=== PATIENT | male | born 1990 | race Caucasian/White ===

== ENCOUNTER 2022-04-07 14:10 | Observation (INO) ==
--- NOTE | 2022-04-07 14:51 | Emergency Department Note ---
Chest Pain HPI General Chief Complaint: Chest Pain Stated Complaint: stabbing chest pain, nausea/vomiting, Time Seen by Provider: 04/07/22 14:14 Source: patient Mode of arrival: ambulatory Limitations: no limitations History of Present Illness HPI Narrative: Narrative: 32-year-old male presents emergency department with 2 to 3 days of chest pain. Patient states its more on the epigastrium and right upper quadrant of his abdomen. Patient states he was recently seen at [facility] yesterday had a complete cardiac work-up that came back negative but he said he still having pain so he wanted to come get evaluated. States he tried a GI cocktail which helped his pain but then seem to come back. He states that he is not short of breath. Denying any other symptoms otherwise said the pains about a 6 out of 10 sharp stabbing pain does not admit to any methamphetamine or any other drug use. Related Data Home Medications Medication Instructions Recorded Confirmed No Known Home Meds 04/07/22 04/07/22 Allergies Allergy/AdvReac Type Severity Reaction Status Date / Time No Known Drug Allergies Allergy Verified 04/07/22 14:13 Review of Systems ROS ROS Narrative: Narrative: All systems ED: reviewed and negative except as stated. PFSH Narrative Patient History Narrative: Narrative: Medical/Surgical/Family History All Active Problems (Updated 04/07/22 @ 16:42 by Jesse Santana DO) Injury of meniscus of knee (Acute) Acute cholecystitis (Acute) Social History Smoking Status: Current every day smoker Exam Narrative Narrative: Narrative: Vital signs noted General: Awake. Alert. No distress. Skin: Warm. Dry. No rash. HEENT: NCAT. PERRL. EOMI. No conjunctivitis. No nystagmus. No pharyngitis. Membranes moist. Neck: No PTP. Good ROM. No meningeal signs. No stridor. No thyromegaly. No JVD. Cardiovascular: RRR. No murmur. No rubs. No gallops. Respiratory: No respiratory distress. Breath sounds equal. Lungs clear. Gastrointestinal: Abdomen soft. Tenderness when palpating the right upper quadrant positive Oates sign. No distention. Normal bowel sounds. No palpable organomegaly or masses. Back: No deformity. No CVAT. Musculoskeletal: No tenderness. No swelling. No erythema. No edema. Good peripheral pulses x 4 Lymphatic: No palpable adenopathy. Neurological: No focal neurological deficits observed. General Limitations: no limitations Course Vital Signs Vital signs: Vital Signs Temperature 98.2 F 04/07/22 14:11 Pulse Rate 105 H 04/07/22 14:11 Respiratory Rate 20 04/07/22 14:11 Blood Pressure 136/81 04/07/22 14:11 Pulse Oximetry (%) 100 04/07/22 14:11 Temperature 98.2 F 04/07/22 14:11 Pulse Rate 66 04/07/22 16:01 Respiratory Rate 14 04/07/22 16:01 Blood Pressure 130/84 04/07/22 16:16 Pulse Oximetry (%) 99 04/07/22 16:01 [facility] MDM Narrative Medical decision making narrative: Narrative: Patient looks well on exam. He does have some right upper quadrant pain on palpation. Were not possible gallbladder disease we will go ahead and get an ultrasound of the gallbladder we will get basic labs including a troponin EKG was done and was negative. We will get other basic labs. I did review the notes and the work-up that was done at [facility] on 04/06/2022. They did do a complete cardiac work-up including delta troponins and all came back negative chest x-ray also was negative interestingly he did come back for amphetamines this could been secondary to amphetamine abuse. He also had a chest x-ray that was negative as well. All of his other labs came back no acute findings. At that time he was discharged home. Troponin was negative CMP was otherwise normal with normal electrolytes normal liver enzymes. Lipase mildly elevated white count was 18. Ultrasound of the gallbladder did show some pericholecystic fluid inflamed gallbladder wall with some gallstones with a common bile duct measuring 4 mm but no obstructing stone. Patient given Dilaudid for pain, Zofran for nausea IV fluids for rehydration as well as Zosyn for antibiotics. Spoke with Dr. Toledo the on-call surgeon who will admit the patient to himself and plan for cholecystectomy tomorrow. EKG interpretation: EKG done at 1418 interpreted by myself shows sinus rhythm at a rate 86, QRS 104, QTc 450. There is no acute ST changes no acute T wave changes no other signs of ischemia no signs of hypertrophy, heart strain, heart block. No WPW/Brugada/HOCM. Impression is normal sinus EKG with no ischemia Lab Data Result diagrams: 04/07/22 14:30 04/07/22 14:30 Labs: Lab Results 04/07/22 04/07/22 04/07/22 Range/Units 14:30 14:30 14:42 WBC 18.0 H (4.5-11.0) K/mcL RBC 5.64 (4.63-6.08) M/mcL Hgb 16.6 (13.7-17.5) g/dL Hct 48.8 (40.1-51.0) % MCV 86.5 (80.0-100.0) fL MCH 29.4 (26.0-34.0) pg MCHC 34.0 (31.0-36.0) g/dL RDW 12.9 (11.5-14.5) % Plt Count 247 (140-440) K/mcL MPV 10.5 H (7.4-10.4) fL Neut % (Auto) 80.9 H (38.0-78.0) % Lymph % (Auto) 8.2 L (15.5-49.0) % [place] % (Auto) 9.4 (1.0-12.0) % Eos % (Auto) 1.2 (0.0-7.0) % Baso % (Auto) 0.3 (0.0-2.0) % Lymph # (Auto) 1.48 L (1.50-4.80) K/mcL [place] # (Auto) 1.70 H (0.10-0.90) K/mcL Eos # (Auto) 0.21 (0.00-0.70) K/mcL Baso # (Auto) 0.06 (0.00-0.30) K/mcL Absolute Neutrophils 14.57 H (1.80-8.00) K/mcL Sodium 134 (133-145) mmol/L Potassium 3.5 (3.3-5.1) mmol/L Chloride 98 (96-108) mmol/L Carbon Dioxide 26 (22-30) mmol/L Anion Gap 10.0 (8.0-16.0) BUN 5 L (6-20) mg/dL Creatinine 0.9 (0.7-1.2) mg/dL GFR Calculation 112 Glucose 106 H (70-105) mg/dL Calcium 8.9 (8.6-10.4) mg/dL Total Bilirubin 0.3 (0.1-1.0) mg/dL AST 23 (<40) U/L ALT 35 (<40) U/L Alkaline Phosphatase 112 (39-117) U/L Total Protein 6.9 (5.9-8.4) gm/dL Albumin 4.4 (3.2-5.2) gm/dL Globulin 2.5 (2.2-3.7) gm/dL Albumin/Globulin Ratio 1.8 (1.0-2.3) Lipase 390 H (7-60) U/L POC Troponin I 0 L (0.02-0.08) Discharge Plan Patient/Caregiver Discharge Instructions Pt seen by [employer]PER/PA only: No Clinical Impression: Acute cholecystitis Patient Disposition: Xfer As Outpt/Obs ([facility]) Condition: Fair Follow up with: No,PCP [Primary Care Provider] - Prescriptions: No Action No Known Home Meds 0RF
[2022-04-07] MEDS ORDERED: KETOROLAC 60 MG/2 ML VIAL IM ONE (15:36)
[2022-04-07 15:39] LABS: Basophils # (Auto) 0.06 K/mcL (0.00-0.30); Basophils % (Auto) 0.3 % (0.0-2.0); Eosinophils # (Auto) 0.21 K/mcL (0.00-0.70); Eosinophils % (Auto) 1.2 % (0.0-7.0); Hematocrit 48.8 % (40.1-51.0); Hemoglobin 16.6 g/dL (13.7-17.5); Lymphocytes # (Auto) 1.48 K/mcL (1.50-4.80); Lymphocytes % (Auto) 8.2 % (15.5-49.0); Mean Cell Volume 86.5 fL (80.0-100.0); Mean Platelet Volume 10.5 fL (7.4-10.4); Monocytes % (Auto) 9.4 % (1.0-12.0); Neutrophils % (Auto) 80.9 % (38.0-78.0); Platelet Count 247 K/mcL (140-440); RBC 5.64 M/mcL (4.63-6.08); Red Cell Distribution Width 12.9 % (11.5-14.5)
[2022-04-07 16:02] LABS: ALT/SGPT 35 U/L (<40); AST/SGOT 23 U/L (<40); Albumin 4.4 gm/dL (3.2-5.2); Albumin/Globulin Ratio 1.8 (1.0-2.3); Alkaline Phosphatase 112 U/L (39-117); Bilirubin,Total 0.3 mg/dL (0.1-1.0); Blood Urea Nitrogen 5 mg/dL (6-20); Calcium 8.9 mg/dL (8.6-10.4); Carbon Dioxide 26 mmol/L (22-30); Chloride 98 mmol/L (96-108); Globulin 2.5 gm/dL (2.2-3.7); Glomerular Filtration Rate 112; Glucose 106 mg/dL (70-105)
--- NOTE | 2022-04-07 16:18 | EKG ---
[facility] Test Date: 2022-04-07 Pat Name: Khurram Sanchez Department: ED Room: Gender: Male [employer] Driver: MARU : 1990 Requested By: Jesse Santana Order Number: [id number] Reading MD: Marino Hoskins Measurements Intervals [place] Rate: 86 P: 72 MS: 136 QRS: 33 QRSD: 104 T: 52 QT: 376 QTc: 450 Interpretive Statements Sinus rhythm Electronically Signed On 04-07-2022 16:18:31 PDT by Marino Hoskins /[facility]/M0/[id number].pdf
[2022-04-07] MEDS ORDERED: ONDANSETRON 4 MG/2 ML VIAL IV ONE ×2 (16:33→16:35)
[2022-04-07] MEDS ORDERED: PIPERACILLIN SODIUM/TAZOBACTAM 3.375 GM in DEXTROSE 5% IN WATER 50 ML IV ONE (16:33)
[2022-04-07] MEDS ORDERED: HYDROmorphone 0.5 MG/0.5 ML SYRINGE IV PRN ×2 (16:33→16:35)
--- NOTE | 2022-04-07 16:49 | Ultrasound Report ---
History: Right upper quadrant pain for the past four days FINDINGS: The liver is normal in size and homogeneous. Doppler shows normal blood flow in the hepatic and portal veins. The gallbladder contains multiple calcified stones of varying size. They measure up to 1.4 cm. Gallbladder wall is mildly thickened and edematous. It measures 4.4 mm. The patient was moderately tender while scanning over the gallbladder. There is a trace amount of free fluid adjacent to the gallbladder. The bile ducts are upper limits of normal caliber. Common duct measures 4.2 mm. No obvious stone is seen within the duct. The pancreas was largely obscured by overlying bowel gas. IMPRESSION: cholelithiasis and cholecystitis Dr. Santana was called with the report Interpreted and Authenticated by: Honorio Varela 04/07/22
[2022-04-07] MEDS ORDERED: PROMETHAZINE 25 MG/ML VIAL IV PRN (17:43)
[2022-04-07] MEDS: 0.9 % SODIUM CHLORIDE 1,000 ML IV SCH (17:56)
[2022-04-07] MEDS: ACETAMINOPHEN 1,000 MG/100 ML BAG IV SCH (18:01)
--- NOTE | 2022-04-07 19:11 | General Surg History&Physical ---
HPI History of Present Illness Patient information: Note initiated : 04/07/22 at 7:02 pm Service Date, if different from initiated Date: [] Patient: Khurram Sanchez a 32 y/o M admitted on 04/07/22 for stabbing chest pain, nausea/vomiting,. Chief Complaint: [] Chief complaint: Right upper quadrant pain with nausea vomiting History of present illness: Mr. Sanchez is a 32 year old M with a 4-day history of epigastric and right upper quadrant pain. Patient seen in the emergency room at [facility] x2. He had cardiac work-up and was given analgesics and a GI cocktail. This relieved his symptoms some but they recurred earlier today. He was again seen in the emergency room and left AMA because of disagreement with the staff. He presented an hour emergency room with complaint of abdominal pain nausea and vomiting. He had an exquisitely tender abdomen. White count was 18,000 and upper abdominal ultrasound shows thickened gallbladder with multiple stones and pericholecystic fluid compatible with acute cholecystitis with cholelithiasis. He is admitted for IV antibiotics and will have cholecystectomy in the a.m. 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 Surgical History (Updated 04/07/22 @ 19:08 by Ranjan Toledo MD) History of appendectomy MEDS/ALLERGIES Home Medications and Allergies Home Medications Medication Instructions Recorded Confirmed Type No Known Home Meds 04/07/22 04/07/22 History Allergies Allergy/AdvReac Type Severity Reaction Status Date / Time No Known Drug Allergies Allergy Verified 04/07/22 14:13 Physical Examination Vital Signs Vital signs: Temp Pulse Resp BP Pulse Ox 97.9 F 71 20 111/66 100 04/07/22 18:01 04/07/22 16:31 04/07/22 18:01 04/07/22 18:01 04/07/22 18:01 General physical appearance General physical exam: well developed, well nourished and moderate pain Eyes Eye exam: PERRL and normal ocular movement ENT ENT exam: no hearing loss and poor prison Head Head exam IM: Present atraumatic, normal inspection and normocephalic Neck Neck exam: no masses, no bruits, trachea midline, no lymphadenopathy and no venous distension Cardiovascular Cardiovascular exam IM: Present normal rate and rhythm, RRR, +S1 and +S2; Absent JVD or tachycardia Respiratory Respiratory exam: normal expansion, normal respiratory effort and clear to auscultation Abdomen Abdomen: Present soft and tender (Right upper quadrant and epigastric tenderness with guarding) Integumentary Integumentary: Present no rash, no growths and no abnormal pigmentation Neurologic Neurologic: Present normal coordination and normal sensation Musculoskeletal Musculoskeletal: Present normal gait, normal posture and other (Healed amputation right hand third fourth and fifth digits) Psychiatric Psychiatric: Present oriented to time, oriented to person, oriented to place, speech is normal, memory intact and other Results Labs Result diagrams: 04/07/22 14:30 04/07/22 14:30 Labs: Abnormal lab results 04/07/22 04/07/22 04/07/22 Range/Units 14:30 14:30 14:42 WBC 18.0 H (4.5-11.0) K/mcL MPV 10.5 H (7.4-10.4) fL Neut % (Auto) 80.9 H (38.0-78.0) % Lymph % (Auto) 8.2 L (15.5-49.0) % Lymph # (Auto) 1.48 L (1.50-4.80) K/mcL [place] # (Auto) 1.70 H (0.10-0.90) K/mcL Absolute Neutrophils 14.57 H (1.80-8.00) K/mcL BUN 5 L (6-20) mg/dL Glucose 106 H (70-105) mg/dL Lipase 390 H (7-60) U/L POC Troponin I 0 L (0.02-0.08) Diabetes panel 04/07/22 Range/Units 14:30 Sodium 134 (133-145) mmol/L Potassium 3.5 (3.3-5.1) mmol/L Chloride 98 (96-108) mmol/L Carbon Dioxide 26 (22-30) mmol/L BUN 5 L (6-20) mg/dL Creatinine 0.9 (0.7-1.2) mg/dL Glucose 106 H (70-105) mg/dL Calcium 8.9 (8.6-10.4) mg/dL AST 23 (<40) U/L ALT 35 (<40) U/L Alkaline Phosphatase 112 (39-117) U/L Total Protein 6.9 (5.9-8.4) gm/dL Albumin 4.4 (3.2-5.2) gm/dL Calcium panel 04/07/22 Range/Units 14:30 Calcium 8.9 (8.6-10.4) mg/dL Albumin 4.4 (3.2-5.2) gm/dL Pituitary panel 04/07/22 Range/Units 14:30 Sodium 134 (133-145) mmol/L Potassium 3.5 (3.3-5.1) mmol/L Chloride 98 (96-108) mmol/L Carbon Dioxide 26 (22-30) mmol/L BUN 5 L (6-20) mg/dL Creatinine 0.9 (0.7-1.2) mg/dL Glucose 106 H (70-105) mg/dL Calcium 8.9 (8.6-10.4) mg/dL Adrenal panel 04/07/22 Range/Units 14:30 Sodium 134 (133-145) mmol/L Potassium 3.5 (3.3-5.1) mmol/L Chloride 98 (96-108) mmol/L Carbon Dioxide 26 (22-30) mmol/L BUN 5 L (6-20) mg/dL Creatinine 0.9 (0.7-1.2) mg/dL Glucose 106 H (70-105) mg/dL Calcium 8.9 (8.6-10.4) mg/dL Total Bilirubin 0.3 (0.1-1.0) mg/dL AST 23 (<40) U/L ALT 35 (<40) U/L Alkaline Phosphatase 112 (39-117) U/L Total Protein 6.9 (5.9-8.4) gm/dL Albumin 4.4 (3.2-5.2) gm/dL All other labs normal. A/P Assessment and plan (1) Cholecystitis, acute with cholelithiasis: Status: Acute Plan Patient is admitted with clear liquids N.p.o. after midnight Zosyn 3.375 IV every 6 hours Promethazine 12.5 mg IV every 4 hours as needed nausea Hydromorphone 1 mg IV every 2 hours as needed Counseled patient for laparoscopic cholecystectomy to be performed in the morning Time Spent With Patient Time: Total time spent is greater than 50% in coordination of care (as documented) at patient's floor/unit and/or counseling patient:
[2022-04-07] MEDS ORDERED: ALPRAZolam 0.5 MG TABLET PO PRN (19:15)
[2022-04-07] MEDS: HYDROmorphone 1 MG/ML SYRINGE IV PRN (19:25)
[2022-04-07] MEDS: NICOTINE 21 MG PATCH TOPICAL SCH (21:41)
[2022-04-07] MEDS: PIPERACILLIN SODIUM/TAZOBACTAM 3.375 GM in DEXTROSE 5% IN WATER 50 ML IV SCH (23:35)
[2022-04-08] MEDS: ACETAMINOPHEN 1,000 MG/100 ML BAG IV SCH ×3 (00:19→12:38)
[2022-04-08] MEDS: 0.9 % SODIUM CHLORIDE 1,000 ML IV SCH ×3 (02:58→22:10)
[2022-04-08] MEDS: HYDROmorphone 1 MG/ML SYRINGE IV PRN ×7 (02:58→23:37)
[2022-04-08 03:41] LABS: Amphetamine Screen,Urine Suspect positive; Barbiturate Screen,Urine None detected; Benzodiazepines Screen,Urine None detected; Cannabinoid Screen,Urine None detected; Cocaine Screen,Urine None detected; Opiate Screen,Urine Suspect Positive; Oxycodone, Urine Screen None detected; Phencyclidine Screen,Urine None detected
[2022-04-08] MEDS: PIPERACILLIN SODIUM/TAZOBACTAM 3.375 GM in DEXTROSE 5% IN WATER 50 ML IV SCH ×4 (05:12→23:38)
[2022-04-08 06:27] LABS: Basophils # (Auto) 0.05 K/mcL (0.00-0.30); Basophils % (Auto) 0.4 % (0.0-2.0); Eosinophils # (Auto) 0.27 K/mcL (0.00-0.70); Eosinophils % (Auto) 2.3 % (0.0-7.0); Hemoglobin 15.5 g/dL (13.7-17.5); Lymphocytes # (Auto) 1.38 K/mcL (1.50-4.80); Lymphocytes % (Auto) 11.5 % (15.5-49.0); Mean Cell Volume 86.6 fL (80.0-100.0); Mean Corpuscular HGB Conc 33.7 g/dL (31.0-36.0); Mean Platelet Volume 10.6 fL (7.4-10.4); Monocytes # (Auto) 1.44 K/mcL (0.10-0.90); Neutrophils % (Auto) 73.8 % (38.0-78.0); Platelet Count 215 K/mcL (140-440); RBC 5.31 M/mcL (4.63-6.08); Red Cell Distribution Width 13.1 % (11.5-14.5)
[2022-04-08 06:51] LABS: ALT/SGPT 202 U/L (<40); AST/SGOT 175 U/L (<40); Albumin 3.3 gm/dL (3.2-5.2); Albumin/Globulin Ratio 1.5 (1.0-2.3); Alkaline Phosphatase 122 U/L (39-117); Bilirubin,Direct 0.5 mg/dL (<0.3); Blood Urea Nitrogen 10 mg/dL (6-20); Calcium 8.6 mg/dL (8.6-10.4); Carbon Dioxide 26 mmol/L (22-30); Chloride 104 mmol/L (96-108); Globulin 2.2 gm/dL (2.2-3.7); Glomerular Filtration Rate 112; Glucose 98 mg/dL (70-105); Lactate Dehydrogenase 237 U/L (135-225); Phosphorous 3.2 mg/dL (2.5-4.5); Triglycerides 49 mg/dL (<150); Uric Acid 3.5 mg/dL (2.5-8.0)
[2022-04-08] MEDS ORDERED: ROCURONIUM 10 MG/ML ML IV ONE (09:00)
[2022-04-08] MEDS ORDERED: SUCCINYLCHOLINE 20 MG/ML ML IV ONE (09:00)
[2022-04-08] MEDS ORDERED: SCOPOLAMINE 1 PATCH PATCH TOPICAL PRN (09:00)
[2022-04-08] MEDS ORDERED: KETAMINE 50 MG/ML Syringe (ANEST) IV ONE (09:00)
[2022-04-08] MEDS ORDERED: fentaNYL 250 MCG/5 ML VIAL IV ONE (09:00)
[2022-04-08] MEDS ORDERED: ONDANSETRON 4 MG/2 ML VIAL ONE (09:00)
[2022-04-08] MEDS ORDERED: GLYCOPYRROLATE 0.2 MG/ML VIAL IV ONE (09:00)
[2022-04-08] MEDS ORDERED: IPRATROPIUM/ALBUTEROL 3 ML AMPUL.NEB NEB PRN ×2 (09:00→10:28)
[2022-04-08] MEDS ORDERED: PHENYLephrine 1 MG/10 ML SYRINGE (ANEST) ONE (09:00)
[2022-04-08] MEDS ORDERED: SUGAMMADEX SODIUM 200 MG/2 ML VIAL IV ONE (09:00)
[2022-04-08] MEDS ORDERED: LIDOCAINE HCL/PF 100 MG/5 ML SYRINGE IV ONE (09:00)
[2022-04-08] MEDS ORDERED: PROPOFOL 200 MG/20 ML VIAL IV ONE (09:00)
[2022-04-08] MEDS ORDERED: MAGNESIUM SULFATE 2 GM/50 ML BAG IV ONE (09:00)
[2022-04-08] MEDS ORDERED: DEXAMETHASONE 10 MG/ML VIAL ONE (09:00)
[2022-04-08] MEDS ORDERED: MIDAZOLAM 2 MG/2 ML VIAL ONE (09:00)
--- NOTE | 2022-04-08 10:06 | Brief Operative Note ---
Brief Operative Note Date of procedure: 04/08/22 Pre-op diagnosis: acute cholecystitis with cholelithiasis Post-op diagnosis: other (acute cholecystitis with cholelithiasis) Procedure: laparoscopic cholecystectomy Grafts/Implants: No Anesthesia: GETA Findings: severe inflammation of gallbladder with stones obstructing cystic duct Complications: none Surgeon: Ranjan Toledo Estimated blood loss (cc): 25 Specimens Removed/Pathology: other (gallbladder) Condition: stable Disposition: PACU
[2022-04-08] MEDS ORDERED: NALOXONE HCL 0.4 MG/ML VIAL IV PRN (10:28)
[2022-04-08] MEDS ORDERED: LABETALOL 5 MG/ML ML IV PRN (10:28)
[2022-04-08] MEDS ORDERED: ONDANSETRON 4 MG/2 ML VIAL IV PRN (10:28)
[2022-04-08] MEDS ORDERED: LACTATED RINGERS 250 ML IV PRN (10:28)
[2022-04-08] MEDS ORDERED: HYDROmorphone 0.5 MG/0.5 ML SYRINGE IV PRN (10:28)
[2022-04-08] MEDS ORDERED: FLUMAZENIL 0.1 MG/ML ML IV PRN (10:28)
[2022-04-08] MEDS ORDERED: METOPROLOL TARTRATE 5 MG/5 ML VIAL IV PRN (10:28)
[2022-04-08] MEDS ORDERED: METHOCARBAMOL 1,000 MG/10 ML VIAL IV PRN (10:28)
[2022-04-08] MEDS ORDERED: MEPERIDINE 25 MG/ML VIAL IV PRN (10:28)
[2022-04-08] MEDS ORDERED: fentaNYL 100 MCG/2 ML VIAL IV PRN (10:28)
[2022-04-08] MEDS ORDERED: LACTATED RINGERS 1,000 ML IV SCH (10:30)
[2022-04-08] MEDS: NICOTINE 21 MG PATCH TOPICAL SCH (12:04)
[2022-04-08] MEDS: 0.9 % SODIUM CHLORIDE 10 ML SYRINGE IV SCH ×2 (14:20→22:11)
[2022-04-09 05:57] LABS: Basophils # (Auto) 0.03 K/mcL (0.00-0.30); Basophils % (Auto) 0.2 % (0.0-2.0); Eosinophils # (Auto) 0.01 K/mcL (0.00-0.70); Eosinophils % (Auto) 0.1 % (0.0-7.0); Hematocrit 45.4 % (40.1-51.0); Hemoglobin 14.9 g/dL (13.7-17.5); Lymphocytes # (Auto) 0.76 K/mcL (1.50-4.80); Lymphocytes % (Auto) 3.9 % (15.5-49.0); Mean Cell Volume 87.1 fL (80.0-100.0); Mean Corpuscular HGB Conc 32.8 g/dL (31.0-36.0); Mean Platelet Volume 10.2 fL (7.4-10.4); Monocytes # (Auto) 1.18 K/mcL (0.10-0.90); Neutrophils % (Auto) 89.8 % (38.0-78.0); Platelet Count 249 K/mcL (140-440); RBC 5.21 M/mcL (4.63-6.08); Red Cell Distribution Width 12.8 % (11.5-14.5); WBC 19.6 K/mcL (4.5-11.0)
[2022-04-09 06:17] LABS: ALT/SGPT 166 U/L (<40); AST/SGOT 72 U/L (<40); Albumin/Globulin Ratio 1.3 (1.0-2.3); Alkaline Phosphatase 117 U/L (39-117); Bilirubin,Direct < 0.2 mg/dL (0-0.3); Bilirubin,Total 0.2 mg/dL (0.1-1.0); Blood Urea Nitrogen 6 mg/dL (6-20); Calcium 8.4 mg/dL (8.6-10.4); Carbon Dioxide 24 mmol/L (22-30); Chloride 106 mmol/L (96-108); Globulin 2.3 gm/dL (2.2-3.7); Glomerular Filtration Rate 117; Glucose 122 mg/dL (70-105); Lactate Dehydrogenase 133 U/L (135-225); Phosphorous 2.3 mg/dL (2.5-4.5); Triglycerides 96 mg/dL (<150); Uric Acid 2.3 mg/dL (2.5-8.0)
[2022-04-09] MEDS: PIPERACILLIN SODIUM/TAZOBACTAM 3.375 GM in DEXTROSE 5% IN WATER 50 ML IV SCH ×4 (06:24→23:49)
[2022-04-09] MEDS: 0.9 % SODIUM CHLORIDE 10 ML SYRINGE IV SCH ×3 (06:25→22:07)
[2022-04-09] MEDS: HYDROcodone/APAP 10/325MG TABLET PO PRN ×3 (10:47→20:13)
[2022-04-09] MEDS: NICOTINE 21 MG PATCH TOPICAL SCH (10:49)
[2022-04-09] MEDS: 0.9 % SODIUM CHLORIDE 1,000 ML IV SCH ×3 (11:22→22:07)
--- NOTE | 2022-04-09 13:28 | General Surgery Progress Note ---
SUBJECTIVE Subjective Patient information: Note initiated : 04/09/22 at 1:25 pm Service Date, if different from initiated Date: [] Patient: Khurram Sanchez 32 y/o M admitted on 04/07/22 for stabbing chest pain, nausea/vomiting,. Chief Complaint: [] Principal diagnosis: Acute cholecystitis with cholelithiasis Interval history: Patient states that he feels much better. He no longer has nausea. He has tolerated diet without difficulty. He has had flatus. He is afebrile. White blood count 19.6, hemoglobin 14.9, hematocrit 29.4, potassium 4.6, BUN and creatinine are normal. Bilirubin 0.2 alk phosphatase 117. Constitutional Vitals: Vital Signs Temp Pulse Resp BP Pulse Ox 98.5 F 98 H 18 102/57 96 04/09/22 11:58 04/09/22 11:58 04/09/22 11:58 04/09/22 11:58 04/09/22 11:58 Period Temp Pulse Resp BP Sys/[place] Pulse Ox Last 24 Hr 97.2 F-98.9 F 67-98 -20 98-134/51-93 96-98 Intake and Output 04/08/22 04/09/22 04/09/22 21:59 05:59 13:59 Intake Total 50 1200 1100 Output Total 600 Balance -550 1200 1100 Weight 160 lb 14.4 oz Intake & Output: Intake & Output 04/08/22 04/09/22 04/09/22 21:59 05:59 13:59 Intake Total 50 1200 1100 Output Total 600 Balance -550 1200 1100 Weight 160 lb 14.4 oz Intake: IV 50 1000 1100 Sodium Chloride 0.9% 1,000 ml @ 950 1000 100 mls/hr IV .Q10H RADHA Rx#: [id number] Zosyn 3.375 gm In Dextrose 5% 50 50 100 in Water 50 ml @ 100 mls/hr IV Q6H RADHA Rx#:[id number] Oral 200 Output: Urine Catheter Amount 600 Other: Urine Color Bright Yellow # Voids 1 1 Eye Eye exam: Present EOMI and normal appearance; Absent scleral icterus Pupils: Present PERRL ENT ENT exam: Present mucous membranes dry, mucous membranes moist, normal exam and normal oropharynx Neck Neck exam: Present full ROM; Absent tenderness Respiratory Respiratory exam: Present normal respiratory exam and CTAB; Absent rales, rho nchi or wheezes Cardiovascular Cardiovascular exam: Present normal rate and rhythm, RRR, +S1 and +S2; Absent JVD GI/Abdominal GI/Abdominal exam: Present normal bowel sounds and tenderness (Mild tenderness around port sites); Absent distended Extremities Exam Extremities exam: Present full ROM, normal inspection and neurovascular intact Neurological Exam Neurological exam: Present alert, normal gait and oriented X3; Absent motor sensory deficit Psychiatric Psychiatric exam: Present normal affect and normal mood A/P Assessment and plan (1) Cholecystitis, acute with cholelithiasis: Status: Acute Plan Patient's white blood count is 19.6. He will be switched to inpatient status for more IV antibiotics. We will will check labs in the morning Time Spent With Patient Time: Total time spent is greater than 50% in coordination of care (as documented) at patient's floor/unit and/or counseling patient:
[2022-04-10] MEDS: HYDROcodone/APAP 10/325MG TABLET PO PRN ×2 (06:02→10:17)
[2022-04-10] MEDS: PIPERACILLIN SODIUM/TAZOBACTAM 3.375 GM in DEXTROSE 5% IN WATER 50 ML IV SCH ×2 (06:02→11:41)
[2022-04-10] MEDS: 0.9 % SODIUM CHLORIDE 10 ML SYRINGE IV SCH (06:03)
[2022-04-10 06:36] LABS: Basophils # (Auto) 0.04 K/mcL (0.00-0.30); Basophils % (Auto) 0.3 % (0.0-2.0); Eosinophils # (Auto) 0.12 K/mcL (0.00-0.70); Eosinophils % (Auto) 0.9 % (0.0-7.0); Hematocrit 41.6 % (40.1-51.0); Hemoglobin 13.2 g/dL (13.7-17.5); Lymphocytes # (Auto) 2.56 K/mcL (1.50-4.80); Mean Cell Volume 89.1 fL (80.0-100.0); Mean Corpuscular HGB Conc 31.7 g/dL (31.0-36.0); Mean Platelet Volume 10.5 fL (7.4-10.4); Neutrophils % (Auto) 71.8 % (38.0-78.0); Platelet Count 238 K/mcL (140-440); RBC 4.67 M/mcL (4.63-6.08); Red Cell Distribution Width 13.4 % (11.5-14.5); WBC 12.8 K/mcL (4.5-11.0)
[2022-04-10 07:57] LABS: ALT/SGPT 96 U/L (<40); AST/SGOT 30 U/L (<40); Albumin 2.9 gm/dL (3.2-5.2); Albumin/Globulin Ratio 1.4 (1.0-2.3); Alkaline Phosphatase 94 U/L (39-117); Bilirubin,Direct < 0.2 mg/dL (0-0.3); Bilirubin,Total < 0.2 mg/dL (0.1-1.0); Blood Urea Nitrogen 9 mg/dL (6-20); Calcium 8.3 mg/dL (8.6-10.4); Carbon Dioxide 22 mmol/L (22-30); Chloride 108 mmol/L (96-108); Globulin 2.1 gm/dL (2.2-3.7); Glomerular Filtration Rate 117; Glucose 121 mg/dL (70-105); Lactate Dehydrogenase 127 U/L (135-225); Phosphorous 2.8 mg/dL (2.5-4.5); Triglycerides 108 mg/dL (<150); Uric Acid 2.8 mg/dL (2.5-8.0)
[2022-04-10] MEDS: 0.9 % SODIUM CHLORIDE 1,000 ML IV SCH (09:42)
[2022-04-10] MEDS: NICOTINE 21 MG PATCH TOPICAL SCH (10:17)
--- NOTE | 2022-04-10 12:15 | Discharge Summary ---
Discharge Provider Provider Patient information: Note initiated : 04/10/22 at 12:10 pm Service Date, if different from initiated Date: [] Patient: Khurram Sanchez 32 y/o M admitted on 04/09/22 for stabbing chest pain, nausea/vomiting,. Chief Complaint: [] Date of admission: 04/09/22 13:29 Discharge date: 04/10/22 Primary care physician: PCP No Admitting clinician: Ranjan Toledo Attending physician on admission: Ranjan Toledo Consults: 04/07/22 Consult to Physician [CONS] Stat Comment: Consulting Provider: Ranjan Toledo Reason For Exam: Physician to Consult Attending physician on discharge: Ranjan Toledo Discharging clinician: Ranjan Toledo COURSE Hospital Course Hospital course: 32-year-old male who presented with right upper quadrant and epigastric pain with nausea but no vomiting. He was noted to have acute cholecystitis. He underwent laparoscopic cholecystectomy on 08 Apr 2022. He was found to have acute severe inflammation of the gallbladder with extensive adhesions, pericholecystic fluid, stones impacted in the neck of the gallbladder. In the postoperative period his white count increased to 19,000 though he did not have any of the symptoms. He is afebrile. He was continued on antibiotics and today his white count is 12.8 LFTs including bilirubin and phosphatase are normal. Patient is clinically stable and is discharged home. Discharge diagnosis: Acute cholecystitis with cholelithiasis Secondary discharge diagnosis: History of methamphetamine use Reason for admission: Acute cholecystitis Procedures: Laparoscopic cholecystectomy Pertinent studies/significant findings: Upper abdominal ultrasound Complications: None Time Spent with Patient Time attestation: Total time spent providing and/or coordinating discharge services: Physical Examination Vital Signs Vital signs: Temp Pulse Resp BP Pulse Ox 98.1 F 90 14 128/70 99 04/10/22 11:42 04/10/22 11:42 04/10/22 11:42 04/10/22 11:42 04/10/22 11:42 General physical appearance General physical exam: well developed, well nourished, no distress and moderate pain Eyes Eye exam: PERRL and normal ocular movement ENT ENT exam: normal mucosa Head Head exam IM: Present atraumatic, normal inspection and normocephalic Neck Neck exam: no masses, no bruits, trachea midline, no lymphadenopathy and no venous distension Cardiovascular Cardiovascular exam IM: Present normal rate and rhythm, RRR, +S1 and +S2; Absent JVD Respiratory Respiratory exam: normal expansion, normal respiratory effort and clear to auscultation Abdomen Abdomen: Present soft, non tender (Mild tenderness around port site) and bowel sounds (Normal bowel sounds) Integumentary Integumentary: Present no rash, no growths and no abnormal pigmentation Neurologic Neurologic: Present normal coordination and normal sensation Musculoskeletal Musculoskeletal: Present normal gait and normal posture Psychiatric Psychiatric: Present oriented to time, oriented to person, oriented to place, speech is normal and memory intact Discharge Plan Patient/Caregiver Discharge Instructions Activity: increase activity as tolerated Diet: Low Fat Prescriptions: New hydrocodone-acetaminophen 10-325 mg Tablet 1 tab PO Q4H PRN (Reason: Pain) Qty: 30 0RF levofloxacin [levofloxacin] 750 MG tablet 750 mg PO DAILY Qty: 10 0RF Follow Up Plan Follow up with: No,PCP [Primary Care Provider] - Patient Disposition: Home, Self-Care Prognosis: Good Rehab Potential: Good I certify that the patient requires SNF services: No Overall status at discharge: patient is progressing back to baseline Discharge Orders: Discharge Order (Routine); Ordered 04/10/22 Ordered By: Ranjan Toledo Pending Pending Pending: Resuscitation Status Resuscitate (Full Code) Diet Regular Diet Start SatApril 09 0800 Hydrocodone Bitart/Acetaminophen (Hydrocodone/Apap 10/325mg Tablet) 1 tab PO Q4HP PRN; Protocol PRN Reason: Per Pain Protocol Last Admin: 04/10/22 10:17 Dose: 1 tab Documented by: Admin: 04/10/22 06:02 Dose: 1 tab Documented by: Admin: 04/09/22 20:13 Dose: 1 tab Documented by: Admin: 04/09/22 16:44 Dose: 1 tab Documented by: Admin: 04/09/22 10:47 Dose: 1 tab Documented by: NILAM Hydromorphone HCl (Hydromorphone 1 Mg/Ml Syringe) 1 mg IV Q2HP PRN; Protocol PRN Reason: Per Pain Protocol Last Admin: 04/08/22 23:37 Dose: 1 mg Documented by: Admin: 04/08/22 18:49 Dose: 1 mg Documented by: Admin: 04/08/22 15:57 Dose: 1 mg Documented by: Admin: 04/08/22 13:41 Dose: 1 mg Documented by: Admin: 04/08/22 07:56 Dose: 1 mg Documented by: Admin: 04/08/22 05:15 Dose: 1 mg Documented by: Admin: 04/08/22 02:58 Dose: 1 mg Documented by: Admin: 04/07/22 19:25 Dose: 1 mg Documented by: LINH Sodium Chloride (Sodium Chloride 0.9%) 1,000 mls @ 100 mls/hr IV .Q10H RADHA Last Admin: 04/10/22 09:42 Dose: Not Given Documented by: Infusion: 04/10/22 09:42 Dose: 100 mls/hr Documented by: Admin: 04/09/22 22:07 Dose: 100 mls/hr Documented by: Infusion: 04/09/22 21:22 Dose: 100 mls/hr Documented by: Admin: 04/09/22 11:22 Dose: 100 mls/hr Documented by: Infusion: 04/09/22 08:10 Dose: 100 mls/hr Documented by: Admin: 04/08/22 22:10 Dose: 100 mls/hr Documented by: Infusion: 04/08/22 22:10 Dose: 100 mls/hr Documented by: Admin: 04/08/22 12:40 Dose: 100 mls/hr Documented by: Infusion: 04/08/22 03:56 Dose: 100 mls/hr Documented by: Admin: 04/08/22 02:58 Dose: Not Given Documented by: Admin: 04/07/22 17:56 Dose: 100 mls/hr Documented by: LEO Piperacillin Sod/Tazobactam (Sod 3.375 gm/ Dextrose) 50 mls @ 100 mls/hr IV Q6H RADHA; Protocol Last Admin: 04/10/22 11:41 Dose: 100 mls/hr Documented by: Infusion: 04/10/22 06:45 Dose: 100 mls/hr Documented by: Admin: 04/10/22 06:02 Dose: 100 mls/hr Documented by: [email or web address] Infusion: 04/10/22 00:19 Dose: 100 mls/hr Documented by: [email or web address] Admin: 04/09/22 23:49 Dose: 100 mls/hr Documented by: [email or web address] Infusion: 04/09/22 19:00 Dose: 100 mls/hr Documented by: [email or web address] Admin: 04/09/22 18:30 Dose: 100 mls/hr Documented by: Infusion: 04/09/22 13:24 Dose: 0 mls/hr Documented by: Admin: 04/09/22 11:07 Dose: 100 mls/hr Documented by: Infusion: 04/09/22 09:35 Dose: 0 mls/hr Documented by: Admin: 04/09/22 06:24 Dose: 100 mls/hr Documented by: Infusion: 04/09/22 00:08 Dose: 100 mls/hr Documented by: [email or web address] Admin: 04/08/22 23:38 Dose: 100 mls/hr Documented by: Infusion: 04/08/22 18:24 Dose: 100 mls/hr Documented by: Admin: 04/08/22 17:54 Dose: 100 mls/hr Documented by: Infusion: 04/08/22 12:45 Dose: 0 mls/hr Documented by: Admin: 04/08/22 12:01 Dose: 100 mls/hr Documented by: Infusion: 04/08/22 05:45 Dose: 0 mls/hr Documented by: Admin: 04/08/22 05:12 Dose: 100 mls/hr Documented by: Infusion: 04/08/22 00:18 Dose: 0 mls/hr Documented by: Admin: 04/07/22 23:35 Dose: 100 mls/hr Documented by: [email or web address] Nicotine (Nicotine 21 Mg Patch) 21 mg TOPICAL DAILY@1000 RADHA Last Admin: 04/10/22 10:17 Dose: 21 mg Documented by: Admin: 04/09/22 10:49 Dose: 21 mg Documented by: Admin: 04/08/22 12:04 Dose: 21 mg Documented by: Admin: 04/07/22 21:41 Dose: 21 mg Documented by: LINH Sodium Chloride (0.9 % Sodium Chloride 10 Ml Syringe) 10 ml IV Q8 RADHA Last Admin: 04/10/22 06:03 Dose: Not Given Documented by: Admin: 04/09/22 22:07 Dose: Not Given Documented by: Admin: 04/09/22 13:23 Dose: Not Given Documented by: Admin: 04/09/22 06:25 Dose: Not Given Documented by: Admin: 04/08/22 22:11 Dose: Not Given Documented by: Admin: 04/08/22 14:20 Dose: Not Given Documented by: DEAM Shift Summary 04/10/22 03:51 Shift Summary by eNna Peterson Admitted for lap mercy. Up ad vinny to BR; voiding well. Had PO pain meds once at bedtime. Has been sleeping & turning self in bed. Abdominal dressings w/scant drainage. Austin intact. Wanted to d/c yesterday, but WBC increased. Hopefully it drops today so he can d/c home. Initialized on 04/10/22 03:51 - END OF NOTE
[2022-04-19 14:05] LABS: Opiate Confirmation Positive
--- NOTE | 2022-04-25 14:55 | Operative Note ---
DATE OF OPERATION: 04/08/2022 PREOPERATIVE DIAGNOSIS: Acute cholecystitis with cholelithiasis. POSTOPERATIVE DIAGNOSIS: Acute cholecystitis with cholelithiasis. PROCEDURE: Laparoscopic cholecystectomy. SURGEON: Ranjan Toledo M.D. FINDINGS: Severe inflammation of gallbladder with stones obstructing the cystic duct. PROCEDURE IN DETAIL: Under general anesthesia, patient's abdomen was prepped and draped in a sterile field. Timeout procedure was carried out as per protocol. Supraumbilical midline incision was made and Veress needle was inserted. The abdomen was insufflated with 3 liters of CO2. A 10 mm port was placed. Laparoscope was placed. The gallbladder was visualized. Under videoscopic guidance, a 12 mm port and two 5 mm ports were placed in the right subcostal region. Gallbladder was grasped and positioned. Cystic duct and cystic artery were definitively identified. The gallbladder showed severe inflammation with a large stone obstructing the cystic duct. Once the cystic duct was identified, it was followed back to the gallbladder and transected using Endo ARABELLA stapler. Cystic artery was clipped with five clips and divided on the wall of the gallbladder. Gallbladder was from the infrahepatic bed using electrocautery. It was placed in an Endopouch and retrieved. Irrigation was carried out. Hemostasis was achieved. CO2 was allowed to escape from the abdomen and the ports were removed. The fascia at the umbilicus was closed with 0 Vicryl interrupted. Skin incisions were closed with victor manuel. Tegaderm dressings were placed. The patient was awakened from anesthesia uneventfully. He was transferred to a bed and taken to the postanesthetic care unit in satisfactory condition. LCS:jason Job ID: [id number] Doc ID: [id number] Ranjan Toledo M.D.
== END 2022-04-10 13:10 | disposition home or self-care (01) ==
LOC: ED 14:10 → MEDSUR 14:10
PROVIDERS: ADMIT Family Medicine Adult Medicine; ATTEND Family Medicine Adult Medicine